=== PATIENT | female | born 1930 | race Caucasian/White ===

== ENCOUNTER 2020-09-28 09:45 | Observation (INO) | payer OTHER ==
[~2020-09-28] VITALS: Ht 147.3 cm; Wt 50.2 kg
[~2020-09-28 09:45] MED LIST: ACET500 PO; ALEN70 PO; AMLO5 PO; ASPI325 PO; ASPI81CH PO; Colace100 MG PO; FLUT44OIA INH; IBUP400 PO; LOSHYD PO; LOVA20 PO; LOVA40 PO; Norco 5-325 Ta1 EACH PO; PROM25 PO; Percocet 5-3251 EACH PO; ZESTORETIC 20-121 EA; Zofran4 MG PO
[2020-09-28 10:40] LABS: BASOPHILS ABSOLUTE AUTO 0.04 K/mm3 (0.00-0.23); BASOPHILS PERCENT AUTO 0 % (0-2); EOSINOPHILS ABSOLUTE AUTO 0.05 K/mm3 (0.00-0.68); EOSINOPHILS PERCENT AUTO 1 % (0-6); Hematocrit 36.4 % (33.0-51.0); Hemoglobin 11.6 g/dL (11.5-16.0); IMMATURE GRAN ABSOLUTE AUTO 0.04 K/mm3 (0.00-0.10); IMMATURE GRAN PERCENT AUTO 0 % (0-1); LYMPHOCYTES ABSOLUTE AUTO 0.77 K/mm3 (0.84-5.20); LYMPHOCYTES PERCENT AUTO 8 % (21-46); MONOCYTES ABSOLUTE AUTO 0.51 K/mm3 (0.16-1.47); MONOCYTES PERCENT AUTO 5 % (4-13); Mean Corpuscular HGB 31.8 pg (26.0-34.0); Mean Corpuscular HGB Conc 31.9 g/dL (31.5-36.5); Mean Corpuscular Volume 100 fL (80-100); Mean Platelet Volume 9.6 fL (9.1-12.4); NEUTROPHILS ABSOLUTE AUTO 8.29 K/mm3 (1.96-9.15); NEUTROPHILS PERCENT AUTO 86 % (41-73); Platelet Count 294 K/mm3 (150-400); RDW Standard Deviation 48.2 fL (35.1-46.3); Red Blood Cell Count 3.65 M/mm3 (3.80-5.20)
[2020-09-28 10:52] LABS: Alanine Aminotransfer (ALT/SGP 39 U/L (12-78); Albumin/Globulin Ratio 1.3 (0.8-1.8); Alk Phos 81 U/L (50-136); Anion Gap 7 mmol/L (6-16); Aspartate Aminotrans (AST/SGOT 23 U/L (12-37); Bilirubin, Total 0.5 mg/dL (0.1-1.0); Blood Urea Nitrogen 24 mg/dL (8-24); Bun/Creatinine Ratio 19.5 (12.0-20.0); CO2, Blood 25 mmol/L (21-32); Chloride, Blood 108 mmol/L (98-108); Creatinine, Blood 1.23 mg/dL (0.40-1.00); Globulin, Blood 3.1 g/dL (2.2-4.0); Glomerular Filtration Rate 44 (60-); Glucose, Blood 99 mg/dL (70-99); Potassium, Blood 4.3 mmol/L (3.5-5.5); Sodium, Blood 140 mmol/L (136-145); Total Protein, Blood 7.1 g/dL (6.4-8.2); Troponin I <0.015 ng/mL (0.000-0.040)
[2020-09-28] MEDS ORDERED: SERT50 PO (11:03)
[2020-09-28] MEDS ORDERED: Lovastatin20 MG PO (11:04)
[2020-09-28] MEDS ORDERED: VITAMIN D31000 UNI1 PO (11:04)
[2020-09-28] MEDS ORDERED: OMEP20ER PO (11:04)
[2020-09-28] MEDS ORDERED: LOSA25 PO (11:04)
[2020-09-28] MEDS ORDERED: MONT10T PO (11:04)
[2020-09-28] MEDS ORDERED: Naproxen375 MG PO (14:58)
--- NOTE | 2020-09-28 17:57 | NUR ---
PT ADMITTED FROM ER TODAY. A/O SBA TO RESTROOM. PT COMPLAINS OF BEING DIZZY WHEN SHE STANDS, ALSO AUDIBLE WHEEZES WHEN STANDING UP, NOT SO MUCH WHEN PT IS AT REST. HAS NO COMPLAINTS OF SOB. SKIN IN TACT. HAS STATED SHE HAS HAD MULTIPLE FALLS AT HOME RECENTLY. CALL LIGHT WITHIN REACH,WILL CONTINUE TO MONTIOR.
[2020-09-29 01:06] LABS: Bun/Creatinine Ratio 21.5 (12.0-20.0); Calcium, Blood 8.8 mg/dL (8.5-10.1); Creatinine, Blood 1.49 mg/dL (0.40-1.00); Magnesium, Blood 2.1 mg/dL (1.6-2.4); Potassium, Blood 4.3 mmol/L (3.5-5.5); Troponin I 0.015 ng/mL (0.000-0.040)
--- NOTE | 2020-09-29 05:44 | NUR ---
SHIFT SUMMARY ASSUMED CARE OF PT AT 1900. PT IS A/OX4. HEART SOUNDS IRREGULAR, TELE SHOWS AFIB AT 86. LUNG SOUNDS DIMINISHED. PT IS STILL UNSTEADY ON FEET AND GET DIZZY IF SHE STANDS TOO LONG. PT HAS BEEN CONTINENT OF URINE. 1P SBA. CALL LIGHT IN REACH, BED IN LOWEST POSTION.
--- NOTE | 2020-09-29 17:20 | NUR ---
SHIFT SUMMARY PT AxOx4. PLEASANT AND COOPERATIVE WITH CARE. PT HAD SHOWER TODAY. REPORTS FEELING MUCH BETTER AFTER HER SHOWER. PT WORKED WITH PHYSICAL THERAPY TODAY. PER MATERIAL MANAGER, TELE RUNNING AT AFIB IN 90'S. PT REPORTS SOME DIZZINESS UPON WALKING. REMINDED PT TO CALL FOR ASSISTANCE TO BATHROOM AND MOVE SLOWLY. SHARON LUNA'Oscar. SMALL SKIN ABRASION ON L HAND REDRESSED. VITALS REVIEWED. PT BP RUNNING HYPERTENSIVE. CURRENTLY RESTING IN BED WITH CALL LIGHT IN REACH. DENIES ANY NEEDS AT THIS TIME.
--- NOTE | 2020-09-30 04:22 | NUR ---
SHIFT SUMMARY ASSUMED CARE OF PT AT 1900. PT IS A/OX4. HEART SOUNDS IRREGULAR, TELE SHOWS AFIB IN THE 90'S. LUNG SOUNDS COARSE, WITH WHEEZES. PT IS A 1 SBA WITH WALKER TO BATHROOM. PT HAS BEEN CONTINENT T/O THE NIGHT. NO ACUTE EVENTS. PT IS APREHENSIVE ABOUT POSSIBLY DISCHARGING TO A SNF. CALL LIGHT IN REACH, BED IN LOWEST POSITION.
[2020-09-30 05:33] LABS: Bun/Creatinine Ratio 25.4 (12.0-20.0); Calcium, Blood 8.8 mg/dL (8.5-10.1); Creatinine, Blood 1.3 mg/dL (0.40-1.00); Potassium, Blood 4.2 mmol/L (3.5-5.5)
--- NOTE | 2020-09-30 17:14 | NUR ---
SHIFT SUMMARY- PT IS A/O, PLESANT AND COOPERATIVE. SHE IS EATING AND DRINKING WELL. SHE IS VOIDING WELL. SHE SLEPT INTERMITENTLY THROUGHOUT THIS SHIFT. SHE WAS UP TO THE CHAIR THIS AFTERNOON. SHE IS CURRENTLY IN BED IN THE LOW POSITION WITH THE CALL LIGHT IN [place].
--- NOTE | 2020-10-01 05:12 | NUR ---
SUMMARY: A/OX4 AND PLEASANT/COOPERATIVE W/CARE. SHE'S SBA OOB AND CALLS APPROPRIATELY FOR ASSIST. PT C/O OF ABDO PAIN W/ASSOCIATED NAUSEA. SHE ADMITS TO HX STOMACH ULCERS BUT IS ON PRILOSEC AND SYMPTOMS WERE RELIEVED W/TYLENOL AND ZOFRAN PRN. PILLS WERE TOLERATED WHOLE IN APPLESAUCE THIS SHIFT. SHE REMAINS AFIB ON TELEMETRY W/HR 70'S BPM. NO ACUTE CHANGES, VSS/AFEBRILE. SNF RECOMMENDED UPON D/C D/T FALLS AT HOME AND PT NOW TAKING XARELTO. WCTM AND REPORT TO DAY RN.
[2020-10-01 14:41] LABS: Influenza A, PCR NEGATIVE (NEGATIVE); Influenza B, PCR NEGATIVE (NEGATIVE); Resp Syncytial Virus, PCR NEGATIVE (NEGATIVE); SARS-Cov-2 (COVID-19) PCR, MMC NEGATIVE (NEGATIVE)
[2020-10-01 15:27] LABS: BASOPHILS ABSOLUTE AUTO 0.05 K/mm3 (0.00-0.23); BASOPHILS PERCENT AUTO 1 % (0-2); EOSINOPHILS PERCENT AUTO 1 % (0-6); Hematocrit 33.8 % (33.0-51.0); Hemoglobin 10.7 g/dL (11.5-16.0); IMMATURE GRAN ABSOLUTE AUTO 0.04 K/mm3 (0.00-0.10); IMMATURE GRAN PERCENT AUTO 0 % (0-1); LYMPHOCYTES ABSOLUTE AUTO 1.29 K/mm3 (0.84-5.20); LYMPHOCYTES PERCENT AUTO 14 % (21-46); MONOCYTES PERCENT AUTO 7 % (4-13); Mean Corpuscular HGB 31.2 pg (26.0-34.0); Mean Corpuscular HGB Conc 31.7 g/dL (31.5-36.5); Mean Corpuscular Volume 99 fL (80-100); Mean Platelet Volume 9.5 fL (9.1-12.4); NEUTROPHILS ABSOLUTE AUTO 7.19 K/mm3 (1.96-9.15); NEUTROPHILS PERCENT AUTO 78 % (41-73); Platelet Count 313 K/mm3 (150-400); RDW Coefficient Variation 12.9 % (11.7-14.2); RDW Standard Deviation 46.4 fL (35.1-46.3); Red Blood Cell Count 3.43 M/mm3 (3.80-5.20); White Blood Cell Count 9.27 K/mm3 (4.00-11.30)
[2020-10-01] MEDS ORDERED: FURO20 PO (15:39)
[2020-10-01] MEDS ORDERED: ELIQUIS2.5 MG PO (15:39)
[2020-10-01] MEDS ORDERED: METO25ER PO (15:41)
[2020-10-01 15:42] LABS: Albumin, Blood 3.5 g/dL (3.4-5.0); Albumin/Globulin Ratio 1.1 (0.8-1.8); Bilirubin, Total 0.5 mg/dL (0.1-1.0); Bun/Creatinine Ratio 23.2 (12.0-20.0); Calcium, Blood 8.9 mg/dL (8.5-10.1); Creatinine, Blood 1.81 mg/dL (0.40-1.00); Globulin, Blood 3.1 g/dL (2.2-4.0); Potassium, Blood 4.5 mmol/L (3.5-5.5); Total Protein, Blood 6.6 g/dL (6.4-8.2)
--- NOTE | 2020-10-01 18:32 | NUR ---
PT WAS HOPING TO BE DISCHARGED TO [facility] TODAY, ORDERS WRITTEN BY AND MED REC COMPLETED, RAPID COVID COMPLETED, RESULTS NEGATIVE. SHE WILL BE SPENDING THE NIGHT AND HOPES TO BE ABLE TO LEAVE TOMORROW. ORTHOSTATIC VS ORDERED BY DR WILKERSON, PLEASE SEE CHART. TELE IN PLACE AND PT REMAINS IN AFIB, RATE CONTROLLED. NO ACUTE CHANGES NOTED THIS SHIFT, WILL CONTINUE TO MONITOR AND REPORT TO ONCOMING RN.
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
--- NOTE | 2020-10-01 20:00 | NUR ---
REFRIGERATING ENGINEER HEAD NOTE INDICATES THAT PT IS NOW PLANNED TO D/C ON 10/02/20 HOME W/HOME HEALTH AFTER INSURANCE AUTHORIZATION DENIED SNF. PT AND STAFF AGREE THIS PLAN IS CONCERNING D/T HER HX OF MULTIPLE FALLS AT HOME AND COMMENCEMENT ON XARELTO. WILL DISCUSS THIS W/DAY RN TO ENSURE MD'S ARE AWARE OF RISKS.
--- NOTE | 2020-10-02 03:52 | NUR ---
SUMMARY: A/OX4, CALLS APPROPRIATELY AND IS PLEASANT AND COOPERATIVE W/CARE. SHE IS SBA IN ROOM AND WAS UP TO TOILET TO VOID. PT AGAIN C/O ABDO PAIN THIS SHIFT BUT DENIED NAUSEA. TYLENOL PRN RECIEVED FOR TOLERABLE RELIEF. SHE REMAINS AFIB AT 60'S BPM ON XARELTO AND RATE CONTROLLED VIA METOPROLOL. PLAN WAS FOR D/C TO SNF BUT INSURANCE AUTHORIZATION WAS DENIED. NEW PLAN IS TO GO HOME W/HOME HEALTH AND PT ADMITTED THAT HER FRIENDS/CAREGIVERS HAVE ALREADY CANCELLED MEAL DELIVERY ON ACCOUNT OF ANTICIPATED SNF D/C. STAFF FEAR THIS MAY NOT BE SAFE SINCE PT HAS AN EXTENSIVE HX OF FALLS AND IS NEWLY ON XARELTO. WILL DISCUSS FURTHER W/DAY RN TO ENSURE DAY MD'S ARE AWARE OF CONCERNS. NO ACUTE CHANGES, VSS/AFEBRILE. WCTM AND REPORT TO DAY RN.
--- NOTE | 2020-10-02 16:15 | NUR ---
REVIEW D'C. AWARE HAS FOLLOW UP APPT. IV D'C WITH BRUISING TO AREA. VERY FRAGILE SKIN. AWARE OF MEDS AT [facility] AND REVIEWED HOW AND WHEN TO TAKE. ANSWER ALL QUESTIONS. VERBALIZES UNDERSTANDING. AWARE CAN RETURN TO E.R. IF PROBLEMS. IN W/C TO POV.
== END 2020-10-02 16:20 | disposition home or self-care (01) ==
LOC: ER 09:45 → MEDS 09:46
PROVIDERS: Emergency Medicine; Family Medicine; ADMIT Internal Medicine
DX: I48.91 Unspecified atrial fibrillation (principal); R55 Syncope and collapse; J44.9 Chronic obstructive pulmonary disease, unspecified; E78.5 Hyperlipidemia, unspecified; I13.0 Hypertensive heart and chronic kidney disease with heart failure and stage 1 through stage 4 chronic kidney disease, or unspecified chronic kidney disease; I50.31 Acute diastolic (congestive) heart failure; N18.30 Chronic kidney disease, stage 3 unspecified; Z87.891 Personal history of nicotine dependence; Z88.0 Allergy status to penicillin; Z79.899 Other long term (current) drug therapy; Z79.01 Long term (current) use of anticoagulants; Z20.822 Contact with and (suspected) exposure to COVID-19
CPT/HCPCS: 0241U; 36415; 71046; 80048; 80053; 83690; 83735; 83880; 84443; 84484; 85025; 93005; 93010; 93306; 94760; 96374; 96375; 96376; 97110; 97116; 97161; 97530; 99285-25; A9270; G0378; J1940; J2405

== ENCOUNTER 2021-03-06 16:47 | Emergency (ER) | payer OTHER ==
[~2021-03-06] VITALS: Ht 134.6 cm; Wt 49.9 kg
[~2021-03-06 16:47] MED LIST changes: +ELIQUIS2.5 MG PO; +FURO20 PO; +LOSA25 PO; +Lovastatin20 MG PO; +METO25ER PO; +MONT10T PO; +Naproxen375 MG PO; +OMEP20ER PO; +SERT50 PO; +VITAMIN D31000 UNI1 PO
== END 2021-03-06 21:04 | disposition home or self-care (01) ==
LOC: ER 16:47
DX: S61.511A Laceration without foreign body of right wrist, initial encounter (principal); Z91.038 Other insect allergy status; Z88.0 Allergy status to penicillin; Z79.899 Other long term (current) drug therapy; Z79.01 Long term (current) use of anticoagulants; Z87.891 Personal history of nicotine dependence; W01.0XXA Fall on same level from slipping, tripping and stumbling without subsequent striking against object, initial encounter
CPT/HCPCS: 71101; 73120; 93005; 93010; 99284-25; A9270

== ENCOUNTER 2021-05-29 12:58 | Observation (INO) | payer OTHER ==
[~2021-05-29] VITALS: Ht 152.4 cm; Wt 41.3 kg
[2021-05-29 14:06] LABS: BASOPHILS ABSOLUTE AUTO 0.01 K/mm3 (0.00-0.23); BASOPHILS PERCENT AUTO 0 % (0-2); EOSINOPHILS PERCENT AUTO 0 % (0-6); Hematocrit 42.3 % (33.0-51.0); Hemoglobin 13.3 g/dL (11.5-16.0); IMMATURE GRAN ABSOLUTE AUTO 0.06 K/mm3 (0.00-0.10); IMMATURE GRAN PERCENT AUTO 1 % (0-1); LYMPHOCYTES ABSOLUTE AUTO 0.52 K/mm3 (0.84-5.20); LYMPHOCYTES PERCENT AUTO 5 % (21-46); MONOCYTES ABSOLUTE AUTO 0.72 K/mm3 (0.16-1.47); MONOCYTES PERCENT AUTO 7 % (4-13); Mean Corpuscular HGB 31.4 pg (26.0-34.0); Mean Corpuscular HGB Conc 31.4 g/dL (31.5-36.5); Mean Corpuscular Volume 100 fL (80-100); Mean Platelet Volume 11.6 fL (9.1-12.4); NEUTROPHILS PERCENT AUTO 88 % (41-73); Platelet Count 182 K/mm3 (150-400); RDW Coefficient Variation 13.7 % (11.7-14.2); RDW Standard Deviation 50.2 fL (35.1-46.3); Red Blood Cell Count 4.23 M/mm3 (3.80-5.20); White Blood Cell Count 10.71 K/mm3 (4.00-11.30)
[2021-05-29 14:11] LABS: Albumin, Blood 3.5 g/dL (3.4-5.0); Albumin/Globulin Ratio 1.1 (0.8-1.8); Bilirubin, Total 1.1 mg/dL (0.1-1.0); Bun/Creatinine Ratio 34.7 (12.0-20.0); Calcium, Blood 9.4 mg/dL (8.5-10.1); Creatinine, Blood 1.5 mg/dL (0.40-1.00); Globulin, Blood 3.2 g/dL (2.2-4.0); Total Protein, Blood 6.7 g/dL (6.4-8.2); Troponin I 0.045 ng/mL (0.000-0.040)
[2021-05-29 15:12] LABS: Source, Urine Clean Catch
[2021-05-29 15:20] LABS: Appearance, Urine Clear (Clear); Blood, Urine Neg (Neg); Color, Urine Amber (P-Yellow); Glucose Qualitative, Urine Neg (Neg); Ketones, Urine 1+ (Neg); Leukocyte Esterase, Urine 1+ (Neg); Nitrite, Urine Neg (Neg); Protein, Urine 2+ (Neg); Specific Gravity, Urine 1.025 (1.003-1.022); Urobilinogen, Urine 2+ (Normal)
[2021-05-29 15:23] LABS: Creatine Kinase MB Index 3.5 (0.0-4.0)
[2021-05-29 15:31] LABS: Bilirubin, Urine 1+ (Neg)
[2021-05-29 15:32] LABS: Granular Casts 0-2 /lpf (0)
[2021-05-29 15:33] LABS: Bacteria Few /hpf; Calcium Oxalate Crystals Mod /hpf; Red Blood Cells, Urine 0-2 /hpf (0-2); Squamous Epithelial Cells Few /hpf (Few); Transitional Epithelial Cells Few /hpf (0-Rare)
[2021-05-29 15:34] LABS: Mucus Light (0-Heavy)
[2021-05-29] MEDS ORDERED: ELIQUIS2.5 M1 PO (18:19)
[2021-05-29] MEDS ORDERED: FURO20 PO (18:20)
[2021-05-29] MEDS ORDERED: LOSARTAN POTAS100 M1 PO (18:21)
[2021-05-29] MEDS ORDERED: Altoprev20 MG PO (18:22)
[2021-05-29] MEDS ORDERED: METO25ER PO (18:23)
[2021-05-29] MEDS ORDERED: MONT10T PO (18:25)
[2021-05-29] MEDS ORDERED: OMEP20ER PO (18:26)
--- NOTE | 2021-05-29 19:16 | NUR ---
Pt is alert, and oriented 2-3. Pt is forgetful and sometimes can answer all orientation questions and at other times appears confused about situation. Bed alarm placed on pt for safety. VSS on RA. BP was high in ED, has been trending back down. Pt has dentures and glasses at bedside. Pt reports she lives alone and does not have caregivers. She states she does have meals on wheels and lives on bottom floor. Tele: afib 100s.
--- NOTE | 2021-05-29 22:09 | NUR ---
ASSUMED CARE OF PATIENT AT APPROXIMATELY 1915 FROM [facility]. PATIENT VERY HARD OF HEARING; HEARING AIDES AT HOME; FORGETFUL. ALERT AND ORIENTED TO SELF, LOCATION, AND EVENT. PATIENT DENIES NUMBNESS, TINGLING, DIZZINESS AND NAUSEA. REPORTS HEADACHE. PHOTOS TAKEN OF COCCYX AND RIGHT ELBOW FOR WOUNDS; SEE ASSESSMENT. IVF INFUSING PER ORDER. ATTENDS IN PLACE. AFIB ON TELE; OXYGEN SATURATION ABOVE 90% ON ROOM AIR.
[2021-05-30 04:51] LABS: BASOPHILS ABSOLUTE AUTO 0.01 K/mm3 (0.00-0.23); BASOPHILS PERCENT AUTO 0 % (0-2); EOSINOPHILS ABSOLUTE AUTO 0.02 K/mm3 (0.00-0.68); EOSINOPHILS PERCENT AUTO 0 % (0-6); Hemoglobin 10.8 g/dL (11.5-16.0); IMMATURE GRAN ABSOLUTE AUTO 0.02 K/mm3 (0.00-0.10); IMMATURE GRAN PERCENT AUTO 0 % (0-1); LYMPHOCYTES ABSOLUTE AUTO 0.92 K/mm3 (0.84-5.20); LYMPHOCYTES PERCENT AUTO 12 % (21-46); MONOCYTES ABSOLUTE AUTO 0.69 K/mm3 (0.16-1.47); MONOCYTES PERCENT AUTO 9 % (4-13); Mean Corpuscular HGB Conc 31.8 g/dL (31.5-36.5); Mean Corpuscular Volume 98 fL (80-100); Mean Platelet Volume 11.2 fL (9.1-12.4); NEUTROPHILS ABSOLUTE AUTO 6.28 K/mm3 (1.96-9.15); NEUTROPHILS PERCENT AUTO 79 % (41-73); Platelet Count 130 K/mm3 (150-400); RDW Coefficient Variation 13.8 % (11.7-14.2); RDW Standard Deviation 49.2 fL (35.1-46.3); Red Blood Cell Count 3.48 M/mm3 (3.80-5.20); White Blood Cell Count 7.94 K/mm3 (4.00-11.30)
[2021-05-30 05:59] LABS: Albumin, Blood 2.5 g/dL (3.4-5.0); Bilirubin, Total 0.8 mg/dL (0.1-1.0); Bun/Creatinine Ratio 36.4 (12.0-20.0); Calcium, Blood 8.3 mg/dL (8.5-10.1); Creatinine, Blood 1.43 mg/dL (0.40-1.00); Globulin, Blood 2.4 g/dL (2.2-4.0); Magnesium, Blood 2.1 mg/dL (1.6-2.4); Potassium, Blood 3.7 mmol/L (3.5-5.5); Thyroid Stimulating Hormone 2.08 uIU/mL (0.360-4.800); Total Protein, Blood 4.9 g/dL (6.4-8.2); Troponin I 0.048 ng/mL (0.000-0.040)
--- NOTE | 2021-05-30 06:01 | NUR ---
NO ACUTE CHANGES. PATIENT SLEPT ABOUT SEVEN HOURS. ORTHOSTATIC VS DONE THIS AM.
--- NOTE | 2021-05-30 17:19 | NUR ---
CALLED DR. NAGEL. REVIEWED EVENTS ON TELE SINCE ADMISSION. REVIEWED VITAL SIGNS. ORDERS RECEIVED TO CHANGE TO MEDICAL STATUS WITH TELE.
--- NOTE | 2021-05-30 18:32 | NUR ---
PT ARRIVED TO 357 VIA BED, SHE IS CONFUSED. CALL LIGHT GIVEN TO HER SHE CAN DEMONSTRATE HOW TO CALL FOR HELP. ICE WATER BROUGHT TO HER, SHE STATES SHE DOESN'T LIKE TO CHANGE, SHE FEELS BACKWARDS NOW. CALL LIGHT IN REACH.
--- NOTE | 2021-05-30 18:40 | NUR ---
SHIFT NOTE: PT ALERT AND ORIENTED X2, DISORIENTED TO SITUATION AND PLACE. FOR THE MOST PART PT IS COOPERATIVE, BUT CAN GET ANXIOUS AND AGITATED AT TIMES. PT NORMALLY INDEPENDENT AT HOME AND IS FORGETFUL OF HER LIMITATIONS. HAS HAD FREQUENT FALLS. PT GETS UP WITH 1 PERSON ASSIST TO BSC, PT WOBBLY AND NEEDS CUEING WHEN UP OUT OF BED. ECHO DONE TODAY. BP SOFT IN AM, BP MEDS HELD, IV LASIX GIVEN WHEN BP IMPROVED. FLUIDS D/C THIS AM. TELE: AFIB 80-90S. IV IN RIGHT AC. WOUND ON BUTTOCKS PRESENT PRIOR TO ADMISSION. MEPALEX ON RIGHT ELBOW.
--- NOTE | 2021-05-30 18:46 | NUR ---
PT TRANSFERRED TO MEDICAL FLOOR AT 1830 REPORT GIVEN.
[2021-05-31 05:37] LABS: Hematocrit 35.3 % (33.0-51.0); Hemoglobin 11.1 g/dL (11.5-16.0); Mean Corpuscular HGB Conc 31.4 g/dL (31.5-36.5); Mean Corpuscular Volume 99 fL (80-100); Mean Platelet Volume 11.3 fL (9.1-12.4); Platelet Count 160 K/mm3 (150-400); RDW Coefficient Variation 13.7 % (11.7-14.2); RDW Standard Deviation 49.1 fL (35.1-46.3); Red Blood Cell Count 3.58 M/mm3 (3.80-5.20); White Blood Cell Count 8.18 K/mm3 (4.00-11.30)
[2021-05-31 06:34] LABS: Bun/Creatinine Ratio 35.9 (12.0-20.0); Calcium, Blood 8.4 mg/dL (8.5-10.1); Creatinine, Blood 1.45 mg/dL (0.40-1.00); Potassium, Blood 3.6 mmol/L (3.5-5.5)
--- NOTE | 2021-05-31 06:59 | NUR ---
SHIFT SUMMARY PT IS AN 89 Y/O FEMALE, ADMITTED FOR POSTURAL DIZZINESS. SHE IS A&O X SELF, VERY CONFUSED AND HALLUCINATING THIS AM. VITAL SIGNS STABLE. TELE SHOWED AFIB IN THE 90S. NO C/O ACUTE PAIN, NAUSEA OR SOB. NO ACUTE CHANGES IN PT CONDITION NOTED DURING THE NIGHT. WILL CONTINUE TO MONITOR AND TREAT PER EMAR UNTIL HAND OFF TO DAY SHIFT RN.
--- NOTE | 2021-05-31 17:12 | NUR ---
SHIFT SUMMARY PATIENT ALERT, ORIENTED TO SELF THIS AM. PATIENT BECAME MORE ALERT LATER IN THE SHIFT, KNOWING CURRENT LOCATION WHICH SHE DIDN'T KNOW EARLIER IN THE SHIFT. PATIENT WORKED WITH OT, PT, AND ST THIS SHIFT. PATIENT SITTING UP IN BED THROUGHOUT THE REMAINDER OF THE SHIFT. PATIENT IS CALM, PLEASANT AND COOPERATIVE WITH CARE. PATIENT FOLLOWS INSTRUCTIONS WITH ENCOURAGEMENT.
--- NOTE | 2021-06-01 05:32 | NUR ---
SHIFT SUMMARY: AOX1, REDIRECTABLE, WEAK. BRUISES TO UPPER BACK HEALING. QUITE IN THE ROOM, LOVES TO WATCH HER HARVINDER MOVIES. SLEPT WELL. ORTHOSTATIC VITALS REVEALED A DROP WHEN SHE GOES FROM SITTING TO STANDING POSITION OF ALMOST 20 POINTS. THIS CAUSED HER TO BECOME VERY DIZZY AND LOSING HER BALANCE. AT THE SAME TIME SHE BECAME TACHYCARDIC. REST OF HER VITALS WERE NORMAL. DOES HAVE TROUBLE SWALLOWING MEDS AT WHICH SHE NEEDS APPLESAUCE TO TAKE TTHEM. FORGETFUL AND DOES NOT USE CALL LIGHT. BED ALARM IS ON. CALL LIGHT IN REACH, WILL CONTINUE TO MONITOR.
[2021-06-01 06:06] LABS: Bun/Creatinine Ratio 41.6 (12.0-20.0); Calcium, Blood 8.5 mg/dL (8.5-10.1); Creatinine, Blood 1.25 mg/dL (0.40-1.00); Potassium, Blood 3.4 mmol/L (3.5-5.5)
--- NOTE | 2021-06-01 08:00 | NUR ---
pt sitting up in a chair, watching tv, she is confused, asked me if im from [place], [facility], pleasant and cooperative with care, follows commands well, denies pain, states she slept ok last night, lungs are clear dim in bases, resp even and unlabored, no cough noted, hrirr, tele in place running afib per monitor, see strip, no edema noted, ppp+1, cap refill< 3sec, vs stable, afebrile, btx4, abd flat soft nontender, voids without diff, skin has a red sore on her bottom, otherwise ok, maew, is impulsive, bed alarm and tab alarm activated when up, del, call light in reach.
--- NOTE | 2021-06-01 18:12 | NUR ---
pt doing ok, PT worked with her today, sat up in a chair for meals, is very [place], her friend stopped by to see her, states she has no family at all and would like to be informed when she is moved to a facility, pt gave permission to speak with her. call light in reach.
--- NOTE | 2021-06-02 04:43 | NUR ---
PATIENT HAD AN UNEVENTFUL NIGHT. ORTHOSTATIC BPs DONE AT START OF THE SHIFT AND BP ACTUALLY INCREASED WITH SITTING/STANDING FROM LAYING. PATIENT DENIES PAIN OR DISCOMFORT AND HAS SLEPT WELL T/O THE NIGHT. NO ACUTE CHANGES TO REPORT OF AT THIS TIME. CALL LIGHT WITHIN REACH.
--- NOTE | 2021-06-02 09:36 | NUR ---
pt up to chair for breakfast, a/ox2, very [place] which may be contributing, lungs are clear dim in bases, resp even and unlabored, no cough noted, hrirr, tele in place running afib, per monitor, see strip, no edema noted, ppp+1, cap refill <3 sec, vs stable, afebrile, btx4, abd flat soft nontender, voids without diff, does have pullups in place, one person assist, has tab alarm and bed alarm activated, [place], call light in reach.
--- NOTE | 2021-06-02 18:21 | NUR ---
pt up to chair for meals, assisted to bathroom using a walker, no acute changes this shift, call light in reach.
[2021-06-03 05:08] LABS: Hematocrit 35.8 % (33.0-51.0); Hemoglobin 11.3 g/dL (11.5-16.0); Mean Corpuscular HGB 30.7 pg (26.0-34.0); Mean Corpuscular HGB Conc 31.6 g/dL (31.5-36.5); Mean Corpuscular Volume 97 fL (80-100); Mean Platelet Volume 10.6 fL (9.1-12.4); Platelet Count 220 K/mm3 (150-400); RDW Coefficient Variation 13.8 % (11.7-14.2); RDW Standard Deviation 49.1 fL (35.1-46.3); Red Blood Cell Count 3.68 M/mm3 (3.80-5.20); White Blood Cell Count 8.54 K/mm3 (4.00-11.30)
--- NOTE | 2021-06-03 05:16 | NUR ---
PATIENT ALERT AND ORIENTED X3, HARD OF HEARING, VERY PLEASANT AND COOPERATIVE, NO IV ACCESS, TOOK WHOLE PILLS WITH APPLE SAUCE
[2021-06-03 06:22] LABS: Bun/Creatinine Ratio 33.9 (12.0-20.0); Calcium, Blood 8.9 mg/dL (8.5-10.1); Creatinine, Blood 1.09 mg/dL (0.40-1.00); Potassium, Blood 4.4 mmol/L (3.5-5.5)
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
--- NOTE | 2021-06-03 16:38 | NUR ---
SHIFT SUMMARY PATIENT IS ALERT AND ORIENTED X2-3, PLEASANT AND COOPERATIVE WITH CARE. THE PATIENT WORKED WITH PHYSICAL THERAPY TODAY. 1 PERSON SBA TO [facility]. THEY WERE ABLE TO WALK DOWN THE URBINA A BIT. A PSYCH CONSULT WAS PUT IN THIS SHIFT. PATIENT IS ON RA. BED ALARM APPLIED. TAB ALARM IN PLACE. CALL LIGHT WITHIN REACH. NO ACUTE CHANGES. THIS NURSE WILL CONTINUE TO CARE FOR THE PATIENT UNTIL SHIFT REPORT IS GIVEN TO THE ONCOMING NURSE.
--- NOTE | 2021-06-04 05:50 | NUR ---
PATIENT WAS ALERT AND ORIENTED X3, PATIENT SLEPT FOR MOST OF THE NIGHT AND ONLY CALLED FOR ASSISTANCE TO US THE BEDSIDE COMMODE. NO ACUTE CHANGES, PATIENTS VITAL SIGN WHERE WHITH STABLE
--- NOTE | 2021-06-04 17:58 | NUR ---
SHIFT SUMMARY PT AXO X1-2 (SELF AND FOLLOWING DIRECTIONS), THOUGH ARIELLE, SUN. DR LYNCH IN ROOM AT THIS TIME CONSULTING. VSS. UP TO CHAIR FOR BREAKFAST AND LUNCH. UP WITH 1 ASSIST. NO OTHER CHANGES THIS SHIFT. BED IN LOW POSITION, CALL LIGHT WITHIN REACH
--- NOTE | 2021-06-05 06:24 | NUR ---
PATIENT IS ALERT AND ORIENTED X4, WITH STABLE VITAL SIGNS. PATIENT DENIES AND PAIN AND TOLERATTED TAKING HER MEDS WHOLE AFTER PUTTING THEM IN PUDDING. NO ACUTE CHANGES, PATIENT SLEPT FOR MOST OF THE SHIFT, BED IN THE LOWEST POSTION WITH CALL LIGHT WITHIN REACH
--- NOTE | 2021-06-05 18:50 | NUR ---
PT A/O X2. PT AMBULATES WELL WITH PT, USES COMMODE. NO SIGNS OF ACUTE DISTRESS. NO REPORTED PAIN. BED IN LOWEST POSTION, CALL LIGHT WITHIN REACH. PENDING PLACEMENT
--- NOTE | 2021-06-06 07:31 | NUR ---
PT A/O X3, PT DENIES ANY PAIN, NO ACUTE CHANGES ON SHIFT. CALL LIGHT WITHIN REACH, BED PLACED IN LOWEST POSITION FOR SAFETY
--- NOTE | 2021-06-06 08:03 | NUR ---
pt laying in bed awake a/ox3, [place], pleasant and cooperative with care, follows commands well, denies pain, states she slept ok, lungs are clear a bit dim in bases, resp even and unlabored, no cough noted, hrirr, no edema noted, ppp+1, cap refill <3sec, vs stable, afebrile, btx4, abd flat soft nontender, voids via br and some incon, pullup in place, skin has some old bruising, no open areas, maew, ambulated with frontwheeled walker and one person assist, del, call light in reach.
--- NOTE | 2021-06-06 18:58 | NUR ---
no acute changes this shift. call light in reach.
--- NOTE | 2021-06-07 04:46 | NUR ---
PT WAS A/O X3, STABLE VITAL SIGNS, NO ACUTE CHANGES DURING SHIFT, PATIENT DENIES PAIN, AWAIT DISCUSSION BY CASE MANAGEMENT FOR LIVING ARRANGEMENTS
--- NOTE | 2021-06-07 19:26 | NUR ---
PATIENT A/O X2. VITALS STABLE. NO SIGNS OF ACUTE DUSTRESS. NO COMPLAINTS OF PAIN. PT AWAITING FOR PLACEMENT
--- NOTE | 2021-06-08 06:08 | NUR ---
SHIFT SUMMARY PT IS A&0X2.FULL CODE STATUS. VS REVIEWED. BED IN LOWER POSITION ,CALL LIGHT IN REACH.PT IS RESTING COMFORTABLY IN BED. NO NEW CONCERNS FOR THIS SHIFT. WILL CONTINUE TO MONITOR UNTIL DAY SHIFT.
--- NOTE | 2021-06-08 19:21 | NUR ---
PT A/O X2. AMBULATES WELL TO COMMODE. PT DENIES PAIN/DISCOMFORT. ALL MEDS GIVEN. PT IS AWAINTING FOR PLACEMENT
--- NOTE | 2021-06-09 04:48 | NUR ---
SHIFT SUMMARY PT IS A0X3. PT IS A VERY PLEASANT, COOPERATIVE WITH CARE. AMBULATES WITH ASSIST TO COMMODE .NO COMPLAINT OF PAIN.NO ACUTE CNAGES DURING THIS SHIFT. CASE MANAGEMENT IS ON THE CASE FOR LIVING ARRANGEMENT.PT IS RESTING COMFORTABLY IN BED. WILL CONTINUE TO MINITOR.
--- NOTE | 2021-06-09 18:49 | NUR ---
SHIFT SUMMARY PT AAO TO SELF AND SITUATION. [place]. ABLE TO MAKE NEEDS KNOWN. FORGETFUL AT TIMES. CALLS APPROPRIATELY FOR ASSISTANCE. NO ACUTE CHANGES NOTED TO PT THIS SHIFT. NO C/O PAIN OR ANY DISCOMFORT. NO C/O CP, SOB, OR N/V/D. BED AT LOWEST POSITION W/ ALARM ON, CALL LIGHT WITHIN REACH.
--- NOTE | 2021-06-10 04:38 | NUR ---
PT IS A/O TO SELF/SITUATION. SHE IS [place]. ORTHOS BID. SYNCOPAL EPISODES HAVE RESOLVED. NO IV/TELE-MD AWARE. SHE CALLS APPROPRIATELY AND IS SBA TO THE BSC.
--- NOTE | 2021-06-10 17:54 | NUR ---
SHIFT SUMMARY PT AAO TO SELF AND SITUATION, [place] AND FORGETFUL AT TIMES. PLEASANT AND COOPERATIVE TO CARE. NO C/O PAIN OR ANY DISCOMFORT THIS SHIFT. PT REQUIRES SBA TO THE BATHROOM, CALLS APPROPRIATELY FOR ASSISTANCE. NO ACUTE CHANGES NOTED THIS SHIFT. BED AT LOWEST POSITION W/ ALARM ON, CALL LIGHT WITHIN REACH.
--- NOTE | 2021-06-11 06:33 | NUR ---
BALDOMERO HARPER REMAINED WNL THROUGHOUT THE SHIFT. SHE WAS ADMINISTERED HER MEDS AND HAD A RESTFUL NIGHT
--- NOTE | 2021-06-11 16:15 | NUR ---
89 year old female admtted to the hospital for Postural Diziness with Near Syncope. 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 Reviewed chart including hospitalist and Dr Campbell's notes. Pt recommended for guardianship due to low decision making capability, low level of understanding, and poor insight. Pt sitting on edge of bed eating home made snaks. Pt is A&OX2. Pt denies pain and dyspnea at this time. Pt does not engage in conversation much and focuses on her snacks. Ended visit to allow Pt's to rest. Spoke with RN Tawanna who is covering for Primary RN. No concerns reported at this time. Spoke with Lifestyle Coordinator Nalini and discussed case. Guardianship and placement are being pursued. Palliative Care will F/U with guardian once established to discussed advanced care planning, code status, and POLST.
--- NOTE | 2021-06-11 16:56 | NUR ---
SHIFT SUMMARY NO ACUTE CHANGES NOTED TO PATIENT THIS SHIFT. PT IS AAO TO SELF AND SITUATION, [place], AND FORGETFUL AT TIMES. PLEASANT AND COOPERATIVE TO CARE. CALLS APPROPRIATELY FOR ASSISTANCE. NO C/O PAIN OR ANY DISCOMFORT THIS SHIFT. NO C/O CP, SOB, OR N/V/D. BED AT LOWEST POSITION. CALL LIGHT WITHIN REACH. BED ALARM ON FOR SAFETY.
--- NOTE | 2021-06-12 04:43 | NUR ---
BALDOMERO'S CONDITION REMAINED SATISFACTORILY STABLE. SHE SLEPT ALL NIGHT USED THE RESTROOM ONCE. NO MAJOR CLINICAL EVENT
--- NOTE | 2021-06-12 17:13 | NUR ---
SHIFT SUMMARY PT AAO TO SELF AND SITUATION, [place], SOME CONFUSION NOTED, FORGETFUL AT TIMES. PT IS REDIRECTABLE BY STAFF. CALLS APPROPRIATELY FOR ASSISTANCE. PT REQUIRES SBA TO BATHROOM. NO C/O PAIN OR ANY DISCOMFORT THIS SHIFT. NO C/O CP, SOB, OR N/V/D. BED AT LOWEST POSITION W/ ALARM ON. CALL LIGHT WITHIN REACH.
--- NOTE | 2021-06-12 20:10 | NUR ---
ASSUMED CARE. AOX1-2. FORGETFUL. AWAITING PLACEMENT AND STATE GUARDIANSHIP. GOT UP TO BATHROOM USING WALKER, STEADY ON FEET WITH SBA. DOES HAVE ORTHOSTATIC CHANGES AND CAN GET DIZZY AT TIMES. DYSPENIC ON EXERTION, R/T HEART FAILURE. BLE EDEMA +2 PITTING. IRREGULAR HEART RYTHEM AFIB, CURRING RUNNING FAST DUE TO EXERTION. ONCE SITTING DOES BETTER. FAIR APPETITE. BM SMALL PEBBLE ONLY. MEDS GIVEN, PATIENT TUCKED INTO BED. CALL LIGHT AND BED ALARM IN PLACE.
--- NOTE | 2021-06-13 05:43 | NUR ---
SHIFT SUMMARY: PLEASANTLY CONFUSED, COOPERATIVE. AWAITING PLACEMENT. VS WITH SOME HYPOTENSION AT START OF SHIFT, METOPROLOL WAS HELD. TACKY AND IRREGULAR HEART RHYTHEM TO THIS AM WHICH ALL VS ARE WNL. CONTINUES TO GET DIZZY UPON STANDING, COMING BACK FROM BATHROOM LAST NIGHT SHE WAS LIFTING HER LEG INTO THE BED AND ALMOST FELL BACKWARDS. DYSPENIC WITH EXERTION. SLEPT WELL T/O SHIFT, USED CALL LIGHT APPROPRIATLY EVERY TIME SHE NEEDED TO GET UP. BED ALARM REMAINS IN PLACE DUE TO FALL RISK. CALL LIGHT IN REACH.
[2021-06-13 06:04] LABS: Albumin, Blood 2.6 g/dL (3.4-5.0); Anion Gap 7 mmol/L (6-16); Blood Urea Nitrogen 40 mg/dL (8-24); Bun/Creatinine Ratio 33.9 (12.0-20.0); CO2, Blood 27 mmol/L (21-32); Calcium, Blood 8.5 mg/dL (8.5-10.1); Chloride, Blood 107 mmol/L (98-108); Creatinine, Blood 1.18 mg/dL (0.40-1.00); Glomerular Filtration Rate 43 (60-); Glucose, Blood 91 mg/dL (70-99); Phosphorus, Blood 4.4 mg/dL (2.5-4.9); Potassium, Blood 4.6 mmol/L (3.5-5.5); Sodium, Blood 141 mmol/L (136-145)
--- NOTE | 2021-06-13 18:06 | NUR ---
PT IS A/OX3. CONFUSED AND FORGETFULL AT TIMES. PLEASANT AND COOPERATIVE. THE PT APPEARS TO BE BREATHING EASILY ON RA AT THIS TIME. THE PT DENIES ANY PAIN. THE PT WORKED WITH THE OCCUPATIONAL THERAPIST AND AMBULATED OUT IN THE [place] USEING THE FWW AROUND THE WHOLE MEDICAL UNIT TODAY. PT HAS BEEN UP INTO THE CHAIR FOR ALL MEALS. CALL LIGHT IN REACH. WILL CONTINUE TO MONITOR AND ASSESS FOR CHANGES
--- NOTE | 2021-06-14 05:07 | NUR ---
SHIFT SUMMARY PT A/O X3 WITH MOMENTS OF CONFUSION. SHE IS PLEASANT AND COOPERATIVE WITH CARE. AWAITING PLACEMENT AND GUARDIANSHIP. SHE SLEPT WELL THROUGH THE NIGHT AND CALLED APPROPRIATELY. SHE GETS UP WITH A SBA USING THE FWW. VSS. WILL REPORT TO DAY SHIFT RN.
--- NOTE | 2021-06-14 17:22 | NUR ---
SHIFT SUMMARY: PT A/O X 2, STANDBY ASSIST TO BATHROOM WITH WALKER. PT FORGETS TO USE CALL LIGHT AT TIMES BUT WILL SIT BACK DOWN SOON CHAIR ALARMS. SHE IS VERY PLEASANT AND COOPERATIVE WITH CARE. SHE HAS BEEN UP MOST OF THE DAY IN HER CHAIR DOING WORD SERCH OR READING AND HAS HAD NO COMPLAINTS T/OUT THE DAY. NO ACUTE CHANGES OR CONCERNS THIS SHIFT.
--- NOTE | 2021-06-15 04:45 | NUR ---
SHIFT SUMMARY PT CURRENTLY AWAITING PLACEMENT. SHE IS VERY PLEASANT AND COOPERATIVE WITH CARE. SBA TO THE BATHROOM W/FWW/GB. A/O X2 AND FAIRLY CONFUSED, HOWEVER SHE DID CALL APPROPRAITELY THIS SHIFT. VSS. WILL REPORT TO DAY SHIFT RN.
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
[2021-06-16 04:42] LABS: Bun/Creatinine Ratio 38.8 (12.0-20.0); Calcium, Blood 8.7 mg/dL (8.5-10.1); Creatinine, Blood 1.16 mg/dL (0.40-1.00); Potassium, Blood 4.7 mmol/L (3.5-5.5)
--- NOTE | 2021-06-16 05:53 | NUR ---
SHIFT SUMMARY PATIENT ALERT AND ORIENTED X3. HAD NO COMPLAINTS OF PAIN OR SHORTNESS OF BREATH. NO ACUTE ISSUES NOTED OVERNIGHT. BED IN LOWEST POSITION WITH WHEELS LOCKED AND ALARM ON. CALL LIGHT WITHIN REACH. REPORT GIVEN TO ONCOMING RN.
--- NOTE | 2021-06-16 17:13 | NUR ---
SHIFT SUMMARY NO ACUTE CHANGES TO PRESENT THIS SHIFT. VERY PLEASANT AND CO-OP WITH CARE. UP TO BTHRM AND CHAIR AT BS WITH SBA ONLY USING FWW. PT VERY MOBILE FOR HER AGE. CONTINENT OF BOWEL AND BLADDER. CALLS FOR ASSIST TO BTHRM. BED AND CHAIR ALARM ON FOR SAFETY, BUT PT HAS BEEN WAITING FOR ASSIST. NO C/O PAIN. ABLE TO MAKE NEEDS KNOWN. CALL LT IN REACH.
--- NOTE | 2021-06-17 05:43 | NUR ---
SHIFT SUMMARY PATIENT ALERT AND ORIENTED X3. HAD NO COMPLAINTS OF PAIN OR SHORTNESS OF BREATH. NO ACUTE ISSUES NOTED OVERNIGHT. CALL LIGHT WITHIN REACH. REPORT GIVEN TO ONCOMING RN.
--- NOTE | 2021-06-17 17:43 | NUR ---
SHIFT SUMMARY NO ACUTE CHANGES THIS SHIFT. PT HAS BEEN AMBULATING AROUND THE ROOM. SHE IS ANXIOUS TO DISCHARGE SHE IS BORED. SHE IS VERY PLEASANT, AGREEABLE WITH MEDICATIONS, AND COMPLIANT WITH CARE. SHE DENIES PAIN OR SOB. WILL CONTINUE TO MONITOR.
--- NOTE | 2021-06-18 04:18 | NUR ---
SUMMARY NO NEW ISSUES NOTED. PT PLESANT AND COOPERATIVE. PT UP LATE WATCHING TV. PT CURRENTLY SLEEPING IN NO DISTRESS. CALL LIGHT IN REACH AND BED ALARM ON.
--- NOTE | 2021-06-18 18:44 | NUR ---
SHIFT SUMMARY PATIENT AAOX4 BUT DOES GET CONFUSED AND FORGETS LIMITATIONS. EASILY REORIENTED TO PLACE AND TIME. SITTING UP AT BEDSIDE EATING DINNER WITH NO ISSUES. NO C/O PAIN, SOB OR DISCOMFORT VOICED. VSS. NAD NOTED. ON RA AND ASSISTED TO BATHROOM TO CHANGE DEPEND. WILL CONTINUE TO MONITOR IN CARE.
--- NOTE | 2021-06-19 05:42 | NUR ---
SHIFT SUMMARY ASSUMED CARE AT 1900. PT REMAINS WITH FREQUENT PERIODS OF CONFUSION /FORGETFULNESS. PT SLEPT THROUGHOUT THE NIGHT. RECEIVED SCHEDULED MEDICATIONS THIS SHIFT. VITAL SIGNS STABLE. ASSISTED X 1 WITH ROLLING WALKER TO BATHROOM NEEDED. PT ABLE TO VOICE HER NEEDS, NO COMPLAINTS WERE VOICED. BED IS IN LOW POSITION WITH THE CALL LIGHT WITHIN EASY REACH. WILL CONTINUE TO MONITOR.
--- NOTE | 2021-06-19 18:14 | NUR ---
SHIFT SUMMARY PATIENT IS AAOX2 AT THIS TIME AND GOES IN AND OUT OF CONFUSION THROUGHOUT THE DAY BUT EASILY REORIENTED TO PLACE AND TIME. TO DID SPEAK WITH CARE MANAGERS AND FINANCIAL PERSON TO HELP SETUP FOR PLACEMENT. SHE HAS BEEN AMBULATING WITH WALKER AROUND THE ROOM WITH NO ISSUES. VSS. NAD NOTED. NO C/O PAIN, SOB, N/V OR DISCPMFORT VOICED AT THIS TIME. WILL CONTINUE TO MONITOR IN CARE.
--- NOTE | 2021-06-20 05:22 | NUR ---
SHIFT SUMMARY ASSUMED CARE AT 1900. PT WITH FREQUENT PERIODS OF FORGETFULNESS AND CONFUSION. REMAINS PLEASANT. ABLE TO VOICE NEEDS. NO COMPLAINTS VOICED, DENIED PAIN DURING SIFT. SCHEDULED MEDICATIONS ADMINISTERED. EVENING DOSE OF TOPROL XL 25MG HELD LAST NIGHT DUE TO SBP LESS THAN 110 ORDERED. LAST BM 06/20/21. BED REMAINS IN LOW POSITION WITH THE CALL LIGHT WITHIN EASY REACH. BED ALARM REMAINS ACTIVATED. WILL CONTINUE TO MONITOR.
--- NOTE | 2021-06-20 18:04 | NUR ---
SHIFT SUMMARY PT AAOX2 AND GETS EASILY REORIENTED TO PLACE AND TIME. AMBULATES AROUNF THE ROOM WITH NO PROBLEMS AND WALKED HALLWAY X3 TODAY WITH MYSELF AND PT. HAS NO C/O PAIN, SOB, N/V OR DISCOMFORT VOICED AT THIS TIME. TOLERATED ALL MEALS. HAD 2 BM TODAY. NO IV ACCESS. VSS. NAD NOTED. WILL CONTINUE TO MONITOR IN CARE.
--- NOTE | 2021-06-21 04:10 | NUR ---
SHIFT SUMMARY PT AWAKE AND ALERT TO HERSELF.PT'S CONDITION REMAINS STABLE. NO NEW CONCERNS THROUGH THE SHIFT. PT IS ABLE TO MAKE HER NEEDS KNOWN. PT IS RESTING COMFORTABLY IN BED, BED ALARM ON AND CALL LIGHT WITHIN REACH .WILL CONTINUE TO MONITOR.
--- NOTE | 2021-06-21 18:27 | NUR ---
SHIFT SUMMARY PATIENT IS SITTING UP IN BED PEACEFULLY EATING DINNER AND TOLERATING MEAL WELL. PT IS AAOX3 AT THE TIME AND REORIENTED TO THE TIME. SHE HAS NO C/O PAIN, SOB, N/V OR DISCOMFORT VOICED. VSS. NAD NOTED. AMBULATES AROUND ROOM WITH WALLKER ASSIST AND HAD 1 BM TODAY. WILL CONTINUE TO MONITOR IN CARE.
--- NOTE | 2021-06-22 05:50 | NUR ---
SHIFT SUMMARY PTIS AWAKE AND ALERT TO HERSELF. METROPROLOL WAS HELD DUE TO LOW SYSTOLIC. NO COMPLAINTS OF SOB OR PAIN. PT IS RESTING COMFORTABLY AT HIS TIME . BED IN LOWER POSITION, CALL LIGHT IN REACH. WILL CONTINUE TO MONITOR.
[2021-06-22 09:45] LABS: Albumin, Blood 2.9 g/dL (3.4-5.0); Anion Gap 5 mmol/L (6-16); Blood Urea Nitrogen 43 mg/dL (8-24); Bun/Creatinine Ratio 37.4 (12.0-20.0); CO2, Blood 29 mmol/L (21-32); Calcium, Blood 8.9 mg/dL (8.5-10.1); Chloride, Blood 106 mmol/L (98-108); Creatinine, Blood 1.15 mg/dL (0.40-1.00); Glomerular Filtration Rate 44 (60-); Glucose, Blood 84 mg/dL (70-99); Phosphorus, Blood 4.3 mg/dL (2.5-4.9); Potassium, Blood 4.6 mmol/L (3.5-5.5); Sodium, Blood 140 mmol/L (136-145)
--- NOTE | 2021-06-22 18:27 | NUR ---
SHIFT SUMMARY PATIENT IS AAOX2 AT THIS TIME. REORIENTED TO PLACE AND TIME. ASKED MULTIPLE TIMES DURING DAY ABOUT NEW LIVING LOCATION. EASILY REMINDED OF WHERE SHE IS. PLEASANTLY CONFUSED ON AND OFF. WALKED THE HALLWAY WITH MYSELF ON TODAY WITH NO ISSUES AND AMBULATES WITH WALKER BACK AND FOURTH TO RESTROOM. NAD NOTED. VSS. NO C/O PAIN, SOB, N/V OR DISCOMFORT VOICED. SITTING UP IN BED EATING DINNER NOW. WILL MONITOR IN CARE
--- NOTE | 2021-06-23 04:23 | NUR ---
SHIFT SUMMARY NO ACUTE EVENTS THROUGH THE NIGHT. PT AWAITING FOR PLACEMENT. PT SLEPT WELL T/O SHIFT. PT IS ABLE TO MAKE HER NEEDS KNOWN.VS REVIEWED AND MEDS WERE GIVEN PER EMAR.WILL CONTINUE TO MONITOR.
--- NOTE | 2021-06-23 18:27 | NUR ---
SHIFT SUMMARY PT IS PLEASANTLY CONFUSED AND COOPERATIVE WITH CARE. SHE IS CURRENTLY AWAITING GUARDIANSHIP/PLACEMENT. CALLS APPROPRIATELY AND IS A SBA TO THE BATHROOM. VSS. WILL REPORT TO KIMANI LOREDO.
--- NOTE | 2021-06-24 05:22 | NUR ---
SHIFT SUMMARY NO ACUTE CHANGES TO REPORT THIS SHIFT, PT HAS RESTED MOST OF THE NIGHT. SHE HAS DENIED NEEDS OR PAIN. PT PLESANTLY CONFUSED, BUT DOES HAVE SOME AWARENESS OF PLACE AND EVENT. PT DID RECALL HER DISCHARGE PLANS, SHE KNEW SHE WAS NOT D/C HOME BUT INSTEAD TO A FACILITY. HOWEVER, PT DID NOT HAVE AWARENESS OF WHAT TIME OF DAY IT WAS. SHE THOUGHT IT WAS MORNING AT THE TIME OF MY ASSESSMENT. PT OVERALL STEADY ON FEET DOES WELL WITH SBA TO THE BATHROOM USING A WALKER. VITALS ARE STABLE. BED ALARM IN PLACE, BED IN LOWEST POSITION, CALL LIGHT WITHIN REACH.
[2021-06-24 05:44] LABS: Albumin, Blood 2.9 g/dL (3.4-5.0); Anion Gap 6 mmol/L (6-16); Blood Urea Nitrogen 48 mg/dL (8-24); Bun/Creatinine Ratio 36.4 (12.0-20.0); CO2, Blood 26 mmol/L (21-32); Calcium, Blood 8.9 mg/dL (8.5-10.1); Chloride, Blood 107 mmol/L (98-108); Creatinine, Blood 1.32 mg/dL (0.40-1.00); Glomerular Filtration Rate 38 (60-); Glucose, Blood 96 mg/dL (70-99); Phosphorus, Blood 4.3 mg/dL (2.5-4.9); Potassium, Blood 4.8 mmol/L (3.5-5.5); Sodium, Blood 139 mmol/L (136-145)
--- NOTE | 2021-06-24 18:12 | NUR ---
SHIFT SUMMARY PATIENT IS SITTING IN CHAIR EATING DINNER. PATIENT IS PLEASANTLY CONFUSED. AWAITING PLACEMENT TO [facility]. PATIENT IS A SBA WITH WALKER TO RESTROOM. VITAL SIGNS STABLE. WILL CONTINUE TO MONITOR.
--- NOTE | 2021-06-25 06:09 | NUR ---
SHIFT SUMMARY A/O X2, ABLE TO MAKE NEEDS KNOWN. COOPERATIVE WITH CARE. CALLS APPROPRIATLEY. SBA /c FWW. NO ACUTE CHANGES NOTED OVERNIGHT. APPEARED TO REST WELL. BED IN LOWEST. CALL LIGHT AND BELONGINGS WITHIN REACH. AWAITING PLACEMENT AT [facility]. REPORT TO ONCOMING RN.
[2021-06-25 06:10] LABS: Bun/Creatinine Ratio 38.6 (12.0-20.0); Calcium, Blood 8.9 mg/dL (8.5-10.1); Creatinine, Blood 1.32 mg/dL (0.40-1.00); Potassium, Blood 4.6 mmol/L (3.5-5.5)
--- NOTE | 2021-06-25 18:33 | NUR ---
SHIFT SUMMARY PATIENT IS SITTING IN CHAIR WATCHING TV. PATIENT IS PLEASANTLY CONFUSED. AWAITING PLACEMENT AT [facility]. PATIENT IS A SBA WITH WALKER AND GETS UP TO THE RESTROOM. VITAL SIGNS STABLE WILL CONTINUE TO MONITOR.
--- NOTE | 2021-06-26 04:52 | NUR ---
SHIFT SUMMARY NO ACUTE EVENTS THROUGH THE NIGHT.PT IS ABLE TO MAKE NEEDS KNOWN . PT IS WAITING FOR PLACEMENT. PT IS RESTING COMFORTABLY AT THIS TIME ,BED IN LOWER POSITION AND CALL LIGHT WITHIN REACH. WILL CONTINUUE TO MONITOR.
--- NOTE | 2021-06-26 18:18 | NUR ---
SHIFT SUMMARY PT AWAITING PLACEMENT. A/O X2-3 AND PLEASANT. SBA TO THE BATHROOM AND CALLS APPROPRIATELY. NO ACUTE CHANGES THIS SHIFT. VSS. CURRENTLY UP IN THE CHAIR WITH HER CALL LIGHT IN REACH. WILL REPORT TO KIMANI LOREDO.
--- NOTE | 2021-06-27 04:32 | NUR ---
SHIFT SUMMARY PT IS AWAITING ON PLACEMENT . PT AWAKE AND ALERT X2. BP WAS IN A LOW SIDE AT THE BEGINNING OF THE SHIFT, METOPROLOL WAS HELD.PT IS RESTING COMFORTABLY AT THIS TIME. NO COMPLAINT OF PAIN OR SOB.BED ALARM ON, CALL LIGHT IN REACH. WILL CONTINUE TO MONITOR.
--- NOTE | 2021-06-27 18:01 | NUR ---
SHIFT SUMMARY NO ACUTE CHANGES THIS SHIFT. PT REMAINS PLEASANT AND HAS BEEN UP IN THE CHAIR DOING CROSSWORDS FOR THE MAJORITY OF THE SHIFT. SBA TO THE BATHROOM W/FWW. LOW BP THIS AM AND BP MEDICATIONS HELD. VS CURRENTLY STABLE AND HYPOTENSION HAS RESOLVED. WILL REPORT TO KIMANI LOREDO.
--- NOTE | 2021-06-28 04:48 | NUR ---
SHIFT SUMMARY NO NOTABLE EVENTS OVERNIGHT.PT IS PLEASANT AND COOPERATIVE WITH CARE. VSS STABLE. ALL MEDS GIVEN PER EMAR. PT IS RESTING COMFORTABLY ON BED, NO COMPLAINTS OF PAIN OR SOB.PT IS STILL AWAITING FOR PLACEMENT. BED IN LOWER POSITION AND CALL LIGHT IN REACH . WILL CONTINUE TO MONITOR.
--- NOTE | 2021-06-28 17:18 | NUR ---
AOX3 AND COOPERATIVE OF CARE. NO ACUTE CHANGES. PT IS A ONE ASSIST TO AMBULATE IN [place] WITH GAIT BELT. NO DISTRESS AT THIS TIME WILL CONTINUE TO MONITOR.
--- NOTE | 2021-06-29 04:12 | NUR ---
SHIFT SUMMARY PT IS AWAKE AND ALERT TO HERSELF, CONFUSED AT TIMES. NO SIGNIFICANT EVENTS OVERNIGHT, ALL MEDS GIVEN PER EMAR .PT DENIES ANY PAIN OR DISCOMFORT. BED IN LOWER POSITION,CALL LIGHT IN REACH. WILL CONTINUETO MONITOR.
--- NOTE | 2021-06-29 18:27 | NUR ---
SHIFT SUMMARY; PATIENT STAND BY DURING AMBULATION TO AND FROM BATHROOM. PATIENT CALLS APPROPRIATELY. ASSIST WITH HER MEALS FOR SET UP. TAKES HER MEDICATIONS WHOLE WITH WATER. HER VITAL SIGNS ARE STABLE AND WNL. WILL REMAIN AVAILABLE FOR THIS PATIENT FOR ANY WANTS OR NEEDS UNTIL SHIFT CHANGE AND HAND OFF TO NOC SHIFT RN. BELTRAN DEL CASTILLO RN
--- NOTE | 2021-06-30 04:45 | NUR ---
SHIFT SUMMARY PT IS AWAKE AND ALERT TO HERSELF. PT IS PLEASANT AND COOPERATIVE TO CARE. METOPROLOL WAS HELD DUE TO BP IN THE LOW SIDE WITH A MAP OVER 65. PT SLEPT THROUGH THE NIGHT . NO COMPLAINTS OF SOB OR PAIN. PT STILL AWAITING ON PLACEMENT . BED IN LOWER POSITION AND CALL LIGHT IN EASY REACH. WILL CONTINUE TO MONITOR.
--- NOTE | 2021-06-30 07:53 | NUR ---
pt up to bathroom, ambulated well with walker, went to window to look at the snow, a/ox2, pleasant and cooperative with care, follows commands well, denies pain, states she's doing well, lungs are clear dim in bases, resp even and unlabored, no cough noted, hrr, btx4, bm this am, voids without diff, pullups in place, skin c/w/d, maew, del, call light in reach. up to chair for breakfast.
--- NOTE | 2021-06-30 18:24 | NUR ---
pt up for her meals, no acute changes this shift. gait is steady when ambulating, call light in reach.
--- NOTE | 2021-07-01 04:49 | NUR ---
SHIFT REPORT: PT IS A/OX3-4. SHE IS USING THE FWW TO THE BR VERY WELL. NO SYNCOPAL EVENTS TO REPORT. PLACEMENT IS HELD UP D/T GUARDIANSHIP, BUT NOW IS RESOLVED. NO NEW CHANGES TO REPORT.
--- NOTE | 2021-07-01 16:47 | NUR ---
PT IS A/OX3, PLEASANT AND COOPERATIVE. THE PT IS UP WITH MINIMAL ASSIST TO THE BATHROOM . THE PT HAS BEEN USEING THE CALL SYSTEM APPROPRIATLY. THE PT HAS BEEN UP IN THE CHAIR FOR ALL MEALS. CALL LIGHT IN REACH. WILL CONTINUE TO MONITOR AND ASSESS FOR CHANGES
--- NOTE | 2021-07-02 04:30 | NUR ---
SHIFT SUMMARY HÉCTOR: HÉCTOR WAS ON HER CHAIR AT THE BEGINNING OF THE SHIFT. SHE DECIDED TO GO TO BED AT AROUND 2100. SHE WAS ADMINISTERED HER MEDS. WAS PLEASANT AOx3, VITALS REMAINED STABLE.
[2021-07-02 06:52] LABS: Magnesium, Blood 2.4 mg/dL (1.6-2.4)
[2021-07-02 06:55] LABS: Bun/Creatinine Ratio 32.1 (12.0-20.0); Calcium, Blood 8.8 mg/dL (8.5-10.1); Creatinine, Blood 1.37 mg/dL (0.40-1.00); Potassium, Blood 4.7 mmol/L (3.5-5.5)
--- NOTE | 2021-07-02 16:30 | NUR ---
PT IS A/OX3, PLEASANT AND COOPERATIVE. THE PT IS UP WITH MINIMAL ASSIST TO THE BATHROOM. THE PT HAS BEEN UP TO THE CHAIR FOR ALL MEALS. THE PT APPEARS TO BE BREATHING EASILY ON RA AT THIS TIME, THE PT DENIES ANY PAIN. THE PTS KARLA WAS IN TO ASSESS THE PT TODAY. CALL LIGHT IN REACH. WILL CONTINUE TO MONITOR AND ASSESS FOR CHANGES
--- NOTE | 2021-07-03 04:46 | NUR ---
SHIFT SUMMARY HÉCTOR: HÉCTOR REMAINED STABLE ALL NIGHT. SHE WAS PLEASANT, JOVIAL AND COOPERATIVE. NO MAJOR CHANGES. WILL CONTINUE TO MINITOR
--- NOTE | 2021-07-03 17:24 | NUR ---
PATIENT IS ALERT AND ORIENTED. CALLS APPROPRIATELY. SBA WITH FWW TO BATHROOM. UP IN CHAIR. NO NEW CONCERNS TODAY. WILL CONTINUE TO MONITOR
--- NOTE | 2021-07-04 04:34 | NUR ---
SHIFT SUMMARY PT PLEASANT AND COOPERATIVE. A/O X 2-3. CALLED APPROPRIATELY THROUGHOUT THE NIGHT. DENIED ANY PAIN. DENIED ANY DIZZINESS, EVEN WHEN STANDING. VITAL SIGNS STABLE. PT SLEPT WELL. PLAN FOR PLACEMENT. POTENTIALLY TODAY TO CALL COURT PER PREVIOUS NOTES.
[2021-07-04] MEDS ORDERED: ATOR10 PO (10:00)
--- NOTE | 2021-07-04 14:23 | NUR ---
DISCHARGE SUMMARY PATIENT DISCHARGED TO [facility]. TAKEN VIA WHEELCHAIR MEDICAL TRANSPORT VEHICLE. ALL PATIENT BELONGINGS AND WALKER TAKEN DOWN WITH PATIENT TO TRANSPORT VEHICLE. DISCHARGE PAPERWORK GIVEN TO BOARD SETTER.
== END 2021-07-04 14:08 | disposition home or self-care (01) ==
LOC: ER 12:58 → MEDS 12:59 → ERHOLD 12:59 → PCU 17:52 → MEDS 05-30 18:25
PROVIDERS: Emergency Medicine; Hospitalist; Internal Medicine; ADMIT Family Medicine
DX: I95.1 Orthostatic hypotension (principal); E86.0 Dehydration; I48.20 Chronic atrial fibrillation, unspecified; R42 Dizziness and giddiness; I13.0 Hypertensive heart and chronic kidney disease with heart failure and stage 1 through stage 4 chronic kidney disease, or unspecified chronic kidney disease; I50.42 Chronic combined systolic (congestive) and diastolic (congestive) heart failure; N18.30 Chronic kidney disease, stage 3 unspecified; E78.5 Hyperlipidemia, unspecified; R63.4 Abnormal weight loss; M54.9 Dorsalgia, unspecified; G89.29 Other chronic pain; R74.8 Abnormal levels of other serum enzymes; R54 Age-related physical debility; G30.9 Alzheimer's disease, unspecified; F02.80 Dementia in other diseases classified elsewhere, unspecified severity, without behavioral disturbance, psychotic disturbance, mood disturbance, and anxiety; R00.0 Tachycardia, unspecified; I08.3 Combined rheumatic disorders of mitral, aortic and tricuspid valves; J44.9 Chronic obstructive pulmonary disease, unspecified; Z87.891 Personal history of nicotine dependence; Z91.038 Other insect allergy status; Z88.0 Allergy status to penicillin; Z79.01 Long term (current) use of anticoagulants; Z91.81 History of falling
CPT/HCPCS: 36415; 71045; 80048; 80053; 80069; 81001; 82550; 82553; 83735; 83880; 84443; 84484; 85025; 85027; 87086; 87147; 92523; 93005; 93010; 93306; 94760; 96365; 96366; 96376; 97110; 97116; 97161; 97165; 97530; 97530-CO; 97535-CO; 99285-25; A9270; G0378; J1940; J7030

== ENCOUNTER 2021-07-17 14:02 | Inpatient (IN) | payer OTHER ==
[~2021-07-17] VITALS: Ht 147.3 cm; Wt 59.0 kg
[~2021-07-17 14:02] MED LIST changes: +ATOR10 PO; +Altoprev20 MG PO; +ELIQUIS2.5 M1 PO; +LOSARTAN POTAS100 M1 PO
[2021-07-17 14:28] LABS: BASOPHILS ABSOLUTE AUTO 0.04 K/mm3 (0.00-0.23); BASOPHILS PERCENT AUTO 0 % (0-2); EOSINOPHILS ABSOLUTE AUTO 0.12 K/mm3 (0.00-0.68); EOSINOPHILS PERCENT AUTO 1 % (0-6); Hematocrit 38.3 % (33.0-51.0); Hemoglobin 11.9 g/dL (11.5-16.0); IMMATURE GRAN ABSOLUTE AUTO 0.04 K/mm3 (0.00-0.10); IMMATURE GRAN PERCENT AUTO 0 % (0-1); LYMPHOCYTES ABSOLUTE AUTO 1.05 K/mm3 (0.84-5.20); LYMPHOCYTES PERCENT AUTO 10 % (21-46); MONOCYTES ABSOLUTE AUTO 0.86 K/mm3 (0.16-1.47); MONOCYTES PERCENT AUTO 9 % (4-13); Mean Corpuscular HGB 30.2 pg (26.0-34.0); Mean Corpuscular HGB Conc 31.1 g/dL (31.5-36.5); Mean Corpuscular Volume 97 fL (80-100); Mean Platelet Volume 10.1 fL (9.1-12.4); NEUTROPHILS ABSOLUTE AUTO 8.06 K/mm3 (1.96-9.15); NEUTROPHILS PERCENT AUTO 79 % (41-73); Platelet Count 318 K/mm3 (150-400); RDW Standard Deviation 53.8 fL (35.1-46.3); Red Blood Cell Count 3.94 M/mm3 (3.80-5.20); White Blood Cell Count 10.17 K/mm3 (4.00-11.30)
[2021-07-17 14:55] LABS: Albumin, Blood 3.3 g/dL (3.4-5.0); Bilirubin, Total 0.6 mg/dL (0.1-1.0); Bun/Creatinine Ratio 25.2 (12.0-20.0); Calcium, Blood 8.3 mg/dL (8.5-10.1); Creatinine, Blood 1.07 mg/dL (0.40-1.00); Globulin, Blood 3.2 g/dL (2.2-4.0); Potassium, Blood 4.5 mmol/L (3.5-5.5); Total Protein, Blood 6.5 g/dL (6.4-8.2)
[2021-07-17 15:00] LABS: Troponin I <0.015 ng/mL (0.000-0.040)
[2021-07-17 16:04] LABS: Influenza A, PCR NEGATIVE (NEGATIVE); Influenza B, PCR NEGATIVE (NEGATIVE); Resp Syncytial Virus, PCR NEGATIVE (NEGATIVE); SARS-Cov-2 (COVID-19) PCR, MMC NEGATIVE (NEGATIVE)
--- NOTE | 2021-07-18 05:00 | NUR ---
PATIENT IS A&O X3 (NOT EVENT) ABLE TO MAKE NEEDS KNOWN. GAIT IS WEAK AND SLIGHTLY UNSTEADY. STANDBY ASSIST OF X1. PATIENT WANTS TO BE INDEPENDENT POSSIBLE. FALLS PRECAUTIONS WERE REINFORCED SINCE THE PATIENT ADMITS TO MULTIPLE FALLS LATELY. BED ALARM SET. PATIENT ON 2L O2/NC. RUNNING AFIB ON TELE. VITAL SIGNS REVIEWED. CALL LIGHT IN REACH.
[2021-07-18 06:32] LABS: Hematocrit 35.9 % (33.0-51.0); Hemoglobin 11.2 g/dL (11.5-16.0); Mean Corpuscular HGB Conc 31.2 g/dL (31.5-36.5); Mean Corpuscular Volume 96 fL (80-100); Mean Platelet Volume 10.2 fL (9.1-12.4); Platelet Count 250 K/mm3 (150-400); RDW Coefficient Variation 14.9 % (11.7-14.2); RDW Standard Deviation 52.5 fL (35.1-46.3); Red Blood Cell Count 3.73 M/mm3 (3.80-5.20)
[2021-07-18 06:47] LABS: Bun/Creatinine Ratio 23.5 (12.0-20.0); Calcium, Blood 8.3 mg/dL (8.5-10.1); Creatinine, Blood 1.15 mg/dL (0.40-1.00); Magnesium, Blood 2.1 mg/dL (1.6-2.4); Potassium, Blood 3.7 mmol/L (3.5-5.5)
--- NOTE | 2021-07-18 17:17 | NUR ---
PATIENT IS ALERT AND ORIENTED WITH INTERMITTENT FORGETFULLNESS. SHE WORKED WITH PT/OT TODAY. 1PA WITH GAITBELT AND FWW. UP TO CHAIR. TAB ALARM. WORKED WITH SPEECH THERAPY AND DIET CHANGED TO SOFT FOODS. THE PATIENT'S GUARDIAN WAS AT THE BEDSIDE TODAY. WILL CONTINUE TO MONITOR
--- NOTE | 2021-07-19 04:57 | NUR ---
SHIFT SUMMARY ASSUMED CARE AT 1900. NO ACUTE EVENTS OVERNIGHT. REMAINS ON ROOM AIR. CARDIAC TELE MONITORING CONTINUES, AFIB, HR 80s, VERIFIED WITH DUC HOLGUIN TECH. BLE EDEMA. X1 ASSIST WITH ROLLING WALKER TO [facility], HAS EPISODES OF URINARY INCONTINENCE. BED IN LOW POSITION WITH THE CALL LIGHT WITHIN EASY REACH. BED ALARM ACTIVATED. WILL CONTINUE TO MONITOR.
[2021-07-19 05:38] LABS: Albumin, Blood 3.1 g/dL (3.4-5.0); Albumin/Globulin Ratio 1.2 (0.8-1.8); Bilirubin, Total 0.7 mg/dL (0.1-1.0); Calcium, Blood 9.1 mg/dL (8.5-10.1); Creatinine, Blood 1.56 mg/dL (0.40-1.00); Globulin, Blood 2.6 g/dL (2.2-4.0); Total Protein, Blood 5.7 g/dL (6.4-8.2)
[2021-07-19] MEDS ORDERED: DOCU100 PO (12:57)
[2021-07-19] MEDS ORDERED: SENN187 PO (12:58)
[2021-07-19] MEDS ORDERED: SERT50 PO (12:58)
[2021-07-19] MEDS ORDERED: FURO20 PO (12:59)
--- NOTE | 2021-07-19 13:10 | NUR ---
REPORT CALLED TO CALL COURT. PATIENT DISCHARGED HOME WITH [facility]
--- NOTE | 2021-07-19 15:19 | NUR ---
Received referral from nurse patient care technician (Michelle Kay) on 07/19/2021. Patient discharged today- 07/19/2021 and was to have orders for home health and [facility]. However, upon discharge no home health orders had been entered. Spoke with hospitalist (Dr. Sanchez) regarding the above. Hospitalist is agreeable to enter home health orders for patient. Contacted patient's care facility- [facility] (Carolyn) to further discuss the above. Patient's facility is agreeable to the above. At this time patient has no home health orders entered. Will continue to monitor and follow for orders. Brittany Gonzalez Referral Liaison
--- NOTE | 2021-07-22 09:02 | NUR ---
Patient now has home health orders entered. Gathered all supporting documentation for referral (face sheet, face to face, med list, H&P, discharge summary, and most recent PT assessment) and sent to [facility] for review. No further interventions required. Brittany Gonzalez Referral Liaison
== END 2021-07-19 13:08 | disposition home health service (06) | DRG 291 ==
LOC: ER 14:02 → MEDS 16:57 → ERHOLD 16:57 → MEDS 23:38
PROVIDERS: Student in an Organized Health Care Education/Training Program; ADMIT Internal Medicine
DX: I13.0 Hypertensive heart and chronic kidney disease with heart failure and stage 1 through stage 4 chronic kidney disease, or unspecified chronic kidney disease (principal); J96.01 Acute respiratory failure with hypoxia; I50.23 Acute on chronic systolic (congestive) heart failure; J44.1 Chronic obstructive pulmonary disease with (acute) exacerbation; E87.1 Hypo-osmolality and hyponatremia; I48.20 Chronic atrial fibrillation, unspecified; Z20.822 Contact with and (suspected) exposure to COVID-19; Z66 Do not resuscitate; K21.9 Gastro-esophageal reflux disease without esophagitis; G30.9 Alzheimer's disease, unspecified; F02.80 Dementia in other diseases classified elsewhere, unspecified severity, without behavioral disturbance, psychotic disturbance, mood disturbance, and anxiety; E78.5 Hyperlipidemia, unspecified; R13.10 Dysphagia, unspecified; N18.32 Chronic kidney disease, stage 3b; E78.00 Pure hypercholesterolemia, unspecified; M81.0 Age-related osteoporosis without current pathological fracture; M54.9 Dorsalgia, unspecified; Z98.51 Tubal ligation status; Z79.01 Long term (current) use of anticoagulants; Z79.899 Other long term (current) drug therapy
CPT/HCPCS: 0241U; 31720; 36415; 71045; 80048; 80053; 83735; 83880; 84145; 84484; 85025; 85027; 92526; 92610; 93005; 93010; 94640; 94760; 96374; 96376; 97116; 97162; 97165; 97535; 99285-25; A9270; J1940

== ENCOUNTER → 2021-08-07 | Outpatient (CLI) | payer OTHER ==
[~2021-08-07] MED LIST changes: +DOCU100 PO; +SENN187 PO
[2021-08-07 20:08] LABS: Bun/Creatinine Ratio 23.7 (12.0-20.0); Calcium, Blood 8.5 mg/dL (8.5-10.1); Creatinine, Blood 1.31 mg/dL (0.40-1.00); Potassium, Blood 4.5 mmol/L (3.5-5.5)
== END | disposition home or self-care (01) ==
LOC: LAB 14:20 → LAB SHORT 14:20
PROVIDERS: Family Medicine
DX: I50.22 Chronic systolic (congestive) heart failure (principal)
CPT/HCPCS: 80048

== ENCOUNTER 2021-09-23 13:14 | Emergency (ER) | payer OTHER ==
[~2021-09-23] VITALS: Ht 160 cm; Wt 59.0 kg
== END 2021-09-23 16:05 | disposition home or self-care (01) ==
LOC: ER 13:14
DX: S01.01XA Laceration without foreign body of scalp, initial encounter (principal); W18.30XA Fall on same level, unspecified, initial encounter; I48.91 Unspecified atrial fibrillation; I13.0 Hypertensive heart and chronic kidney disease with heart failure and stage 1 through stage 4 chronic kidney disease, or unspecified chronic kidney disease; N18.30 Chronic kidney disease, stage 3 unspecified; I50.22 Chronic systolic (congestive) heart failure; E78.5 Hyperlipidemia, unspecified; Z88.0 Allergy status to penicillin; Z91.030 Bee allergy status; M19.90 Unspecified osteoarthritis, unspecified site; Z79.899 Other long term (current) drug therapy
CPT/HCPCS: 70450; 72125; 99283-25; A9270

== ENCOUNTER 2021-09-26 20:00 | Emergency (ER) | payer OTHER ==
[~2021-09-26] VITALS: Ht 147.3 cm; Wt 49.9 kg
[2021-09-26 23:16] LABS: BASOPHILS ABSOLUTE AUTO 0.02 K/mm3 (0.00-0.23); BASOPHILS PERCENT AUTO 0 % (0-2); EOSINOPHILS ABSOLUTE AUTO 0.03 K/mm3 (0.00-0.68); EOSINOPHILS PERCENT AUTO 0 % (0-6); Hematocrit 36.9 % (33.0-51.0); Hemoglobin 11.6 g/dL (11.5-16.0); IMMATURE GRAN ABSOLUTE AUTO 0.05 K/mm3 (0.00-0.10); IMMATURE GRAN PERCENT AUTO 1 % (0-1); LYMPHOCYTES ABSOLUTE AUTO 1.11 K/mm3 (0.84-5.20); LYMPHOCYTES PERCENT AUTO 11 % (21-46); MONOCYTES PERCENT AUTO 8 % (4-13); Mean Corpuscular HGB 29.1 pg (26.0-34.0); Mean Corpuscular HGB Conc 31.4 g/dL (31.5-36.5); Mean Corpuscular Volume 93 fL (80-100); Mean Platelet Volume 10.3 fL (9.1-12.4); NEUTROPHILS ABSOLUTE AUTO 8.35 K/mm3 (1.96-9.15); NEUTROPHILS PERCENT AUTO 81 % (41-73); Platelet Count 232 K/mm3 (150-400); RDW Coefficient Variation 16.5 % (11.7-14.2); RDW Standard Deviation 56.4 fL (35.1-46.3); Red Blood Cell Count 3.99 M/mm3 (3.80-5.20); White Blood Cell Count 10.36 K/mm3 (4.00-11.30)
[2021-09-26 23:33] LABS: Albumin, Blood 3.4 g/dL (3.4-5.0); Albumin/Globulin Ratio 1.1 (0.8-1.8); Bilirubin, Total 1.1 mg/dL (0.1-1.0); Bun/Creatinine Ratio 41.8 (12.0-20.0); Calcium, Blood 8.5 mg/dL (8.5-10.1); Creatinine, Blood 1.22 mg/dL (0.40-1.00); Potassium, Blood 3.7 mmol/L (3.5-5.5); Total Protein, Blood 6.4 g/dL (6.4-8.2)
[2021-09-27 00:19] LABS: Source, Urine Clean Catch
[2021-09-27 00:22] LABS: Bilirubin, Urine Neg (Neg); Blood, Urine Neg (Neg); Glucose Qualitative, Urine Neg (Neg); Ketones, Urine Neg (Neg); Leukocyte Esterase, Urine Neg (Neg); Nitrite, Urine Neg (Neg); Protein, Urine 1+ (Neg); Urobilinogen, Urine 1+ (Normal)
[2021-09-27 00:34] LABS: Appearance, Urine Clear (Clear); Color, Urine Yellow (P-Yellow)
== END 2021-09-27 06:30 | disposition home or self-care (01) ==
LOC: ER 20:00
PROVIDERS: Student in an Organized Health Care Education/Training Program
DX: R42 Dizziness and giddiness (principal); S00.03XA Contusion of scalp, initial encounter; M54.2 Cervicalgia; W18.30XA Fall on same level, unspecified, initial encounter; Z88.0 Allergy status to penicillin; Z91.030 Bee allergy status; Z79.899 Other long term (current) drug therapy; I48.91 Unspecified atrial fibrillation; I13.0 Hypertensive heart and chronic kidney disease with heart failure and stage 1 through stage 4 chronic kidney disease, or unspecified chronic kidney disease; I50.22 Chronic systolic (congestive) heart failure; N18.30 Chronic kidney disease, stage 3 unspecified; E78.00 Pure hypercholesterolemia, unspecified; M19.90 Unspecified osteoarthritis, unspecified site
CPT/HCPCS: 70450; 72125; 80053; 84484; 85025; 93005; 93010

== ENCOUNTER 2021-10-08 07:50 | Emergency (ER) | payer OTHER ==
[~2021-10-08] VITALS: Ht 152.4 cm; Wt 45.4 kg
[2021-10-08] MEDS ORDERED: Vitamin D1000 UNI1 PO (08:07)
[2021-10-08] MEDS ORDERED: LOPE2C PO (08:08)
[2021-10-08] MEDS ORDERED: SENN187 PO (08:09)
== END 2021-10-08 12:44 | disposition home or self-care (01) ==
LOC: ER 07:50
DX: S01.01XA Laceration without foreign body of scalp, initial encounter (principal); I13.0 Hypertensive heart and chronic kidney disease with heart failure and stage 1 through stage 4 chronic kidney disease, or unspecified chronic kidney disease; N18.30 Chronic kidney disease, stage 3 unspecified; I50.22 Chronic systolic (congestive) heart failure; E78.00 Pure hypercholesterolemia, unspecified; Z88.0 Allergy status to penicillin; Z79.899 Other long term (current) drug therapy; W18.30XA Fall on same level, unspecified, initial encounter
CPT/HCPCS: 12002; 70450; 72125; 90471; 90714; 99284-25; A9270